=== PATIENT | female | born 1940 | race Caucasian/White ===

== ENCOUNTER 2023-06-26 14:52 | Emergency (ER) | payer MEDICARE, SELFPAY ==
[2023-06-26] VITALS (17 sets, daily range): BP systolic 162–170; BP diastolic 65–91; PULSE 58–109; RESP 12–28; TEMP 36.8; O2SAT 93; BMI 44.6
--- NOTE | 2023-06-26 16:02 | XR_ITS ---
The [address] [address] Patient Name: ANA MORELOS MRN: [id number] date: 1940 Sex: F Assigned Patient Location: ED.MAIN Current Patient Location: ER Accession/Order Number: [id number] Exam Date: 06/26/2023 15:55 Report Date: 06/26/2023 16:31 At the request of: TESS CRUZ Procedure: XR lumbar spine 2-3V EXAM: XR lumbar spine 2-3V HISTORY: Back pain COMPARISON: Abdomen and pelvic CT 01/25/2021 TECHNIQUE: 3 views FINDINGS: IMPRESSION: Since the prior study the patient has undergone vertebroplasty at L1 and L4. Age-indeterminate compression of the T11 and T12 vertebral bodies. Remainder of the visualized vertebral bodies appear unremarkable. No visualized listhesis. Scattered intervertebral disc space narrowing, endplate and facet arthrosis. The bowel gas pattern is nonobstructed. Surgical clips within left upper quadrant. Electronically authenticated by: ALDO ARMSTRONG Date: 06/26/2023 16:31
[2023-06-26 16:09] LABS: Basophils Percent Auto 0.3 % (0.2-2.0); Eosinophils Absolute Auto 0.1 10^3/uL (0.0-0.7); Eosinophils Percent Auto 0.9 % (0.9-7.0); Hematocrit 46.8 % (36.0-48.0); Hemoglobin 15.2 g/dL (12.0-16.0); Immature Granulocytes Abs Auto 0.04 10^3/uL (0.00-0.03); Immature Granulocytes Pct Auto 0.5 % (0.0-0.5); Lymphocytes Absolute Auto 1.9 10^3/uL (1.2-3.8); Lymphocytes Percent Auto 21.7 % (20.5-60.0); Mean Corpuscular HGB Conc 32.5 g/dL (29.9-35.2); Mean Corpuscular Hemoglobin 30.1 pg (26.7-34.0); Mean Corpuscular Volume 92.7 fL (81.0-99.0); Mean Platelet Volume 9.7 fL (9.5-13.5); Monocytes Absolute Auto 0.7 10^3/uL (0.3-0.8); Monocytes Percent Auto 8.2 % (1.7-12.0); Neutrophils Percent Auto 68.4 % (43.0-75.0); Platelet Count 303 10^3/uL (150-450); Red Blood Count 5.05 10^6/uL (4.20-5.40); Red Cell Distribution Width 13.7 % (11.0-15.0); White Blood Count 8.8 10^3/uL (4.0-11.0)
[2023-06-26 16:16] LABS: Alanine Aminotransferase 38 U/L (14-59); Albumin Globulin Ratio 0.7; Albumin Level 3.5 g/dL (3.4-5.0); Alkaline Phosphatase 186 U/L (46-116); Aspartate Amino Transferase 45 U/L (15-37); BUN Creatinine Ratio 21.2; Bilirubin Total 0.7 mg/dL (0.2-1.0); Calcium 8.1 mg/dL (8.5-10.1); Carbon Dioxide 24.6 mmol/L (21.0-32.0); Chloride 100 mmol/L (98-107); Estimated GFR (African America 46 (>=60); Estimated GFR (Non-African Ame 38 (>=60); Globulin 4.7 g/dL; Glucose 158 mg/dL (74-106); Potassium 3.6 mmol/L (3.5-5.1); Sodium 132 mmol/L (136-145); Total Protein 8.2 g/dL (6.4-8.2)
[2023-06-26 16:23] LABS: Lactate/Lactic Acid 1.4 mmol/L (0.4-2.0)
--- NOTE | 2023-06-26 16:56 | ED_ITS ---
HPI - Back Pain/Injury General Chief Complaint: Back Pain/Injury Stated Complaint: ABDOMINAL PAIN/BACK PAIN Time Seen by Provider: 06/26/23 14:59 Source: patient Mode of arrival: Wheelchair Limitations: no limitations History of Present Illness HPI Narrative: 82-year-old obese female presents here with a chief complaint of exacerbation of back pain. Patient was seen at another facility twice last week and had CT scans of her abdomen and lumbar region. Medical records were reviewed. Upon arrival here to the emergency room family states they feel she is unsafe at home and they're unable to control her pain despite using Percocet every 6 hours [id number]. They're also concerned that she may be constipated although patient states she has had a bowel movement. He does have a history of confusion baseline dementia. Patient is alert and oriented this time to place and self. Patient is currently wearing a Lidoderm patch on her lower back. She has a history of kyphoplasty no one and four in the past. [id number] states she started complaining of increased pain last week. She has failed outpatient therapy and pain medicine over the last week. They came to our facility in hopes for help or admission Or transfer to the facility she has been seen a previously. She's had no new onset of loss of bowel or bladder function. She states she has increased pain with range of motion or rolling over. And has pain to palpation. Vertebral region of her lower thoracic and upper lumbar spine. She is able to move all lower extremities. no Sign of cauda equina.She does see Dr. Sebastian. Related Data Allergies Allergy/AdvReac Type Severity Reaction Status Date / Time Penicillins AdvReac Intermediate Verified 06/26/23 15:11 Review of Systems ROS Narrative All Systems are negative except as noted/marked.All systems reviewed and otherwise negative [facility] Social History Smoking status: Never smoker Exam Narrative Exam Narrative: Patient is a All Systems are negative except as noted/marked.All systems reviewed and otherwise negative Nurses note and vital signs reviewed and patient is not hypoxic. General: The patient appears well and in no apparent distress. Patient is resting comfortably on cart. Skin: Warm, dry, no pallor noted. There is no rash noted. Head: Normocephalic, atraumatic Eye: Normal conjunctiva, no drainage, EOMI. PERRL Ears, Nose, Mouth, and Throat: oral mucosa is moist. Nares patent. Mouth without vesicles. Ear canals patent. Tm's without Erythema Cardiovascular: Regular Rate and Rhythm Respiratory: Patient is in no distress, no accessory muscle use, lungs are clear to auscultation, no wheezing, rales or rhonchi Back: There is palpation to the T11-T12 region of her thoracic spine and paravertebral tenderness to palpation of lower lumbar region as well. No pain o ut of proportion crepitus, wearing a Lidoderm patch GI: Normal bowel sounds, no tenderness to palpation, no masses appreciated. No rebound, guarding, or rigidity noted. Musculoskeletal: able to move all lower extremities without difficulty, Neurological: A&O x4, normal speech Psychiatric: Cooperative Constitutional Vital Signs, click to edit/add: Last Vital Signs Temp 98.2 F 06/26/23 15:00 Pulse 60 06/26/23 17:40 Resp 15 06/26/23 17:40 BP 163/65 H 06/26/23 17:31 Pulse Ox 93 L 06/26/23 15:00 O2 Del Method Room Air 06/26/23 15:00 Course Vital Signs Vital signs: Vital Signs Temperature 98.2 F 06/26/23 15:00 Pulse Rate 72 06/26/23 15:00 Respiratory Rate 18 06/26/23 15:00 Blood Pressure 162/91 H 06/26/23 15:00 Pulse Oximetry 93 L 06/26/23 15:00 Oxygen Delivery Method Room Air 06/26/23 15:00 Temperature 98.2 F 06/26/23 15:00 Pulse Rate 60 06/26/23 17:40 Respiratory Rate 15 06/26/23 17:40 Blood Pressure 163/65 H 06/26/23 17:31 Pulse Oximetry 93 L 06/26/23 15:00 Oxygen Delivery Method Room Air 06/26/23 15:00 MDM - Back Pain/Injury Differential Diagnosis Differential diagnosis: Likely lumbar radiculopathy Medical Records Attestation: I reviewed the patient's medical records. Lab Data Attestation: I reviewed the patient's lab results. Lab results narrative: Patient's white count is normal known anemia or thrombocytopenia no severe diabetes renal fairly to light and balance liver function tests today does show an elevated alkaline phosphatase sent with her elevation that she had last week in the emergency room. X-ray of lumbar spine today shows a questionable T11-T12 compression fracture of indeterminate age. Previous lumbar spine CT scan did not make mention of this from her visit last week at another facility. Patient sees neurosurgery at [facility]. Family members agree patient to be transferred over where her neurosurgeon in neurology are available. Patient has failed outpatient pain medication therapy over the past week and has had increased pain or home. Family members are concerned of her increased pain and they cannot take care of her. They fear for her falling. Patient also has a history of dementia. She has been alert and oriented here for me today. They state this is her baseline. She has been taking Percocet and Zofran at home with little to no relief. I called to transfer patient to [facility]. I spoke to Dr. Rodríguez. Patient will be seen her neurosurgeon at that facility. We do not have orthopedist or neurosurgery available at our facility and patient family members wish to have her where she can see her physicians. Patient stable to be Transferred. Labs: Lab Results 06/26/23 Range/Units 15:48 WBC 8.8 (4.0-11.0) 10^3/uL RBC 5.05 (4.20-5.40) 10^6/uL Hgb 15.2 (12.0-16.0) g/dL Hct 46.8 (36.0-48.0) % MCV 92.7 (81.0-99.0) fL MCH 30.1 (26.7-34.0) pg MCHC 32.5 (29.9-35.2) g/dL RDW 13.7 (11.0-15.0) % Plt Count 303 (150-450) 10^3/uL MPV 9.7 (9.5-13.5) fL Neut % (Auto) 68.4 (43.0-75.0) % Lymph % (Auto) 21.7 (20.5-60.0) % [place] % (Auto) 8.2 (1.7-12.0) % Eos % (Auto) 0.9 (0.9-7.0) % Baso % (Auto) 0.3 (0.2-2.0) % Neut # (Auto) 6.0 (1.4-6.5) 10^3/uL Lymph # (Auto) 1.9 (1.2-3.8) 10^3/uL [place] # (Auto) 0.7 (0.3-0.8) 10^3/uL Eos # (Auto) 0.1 (0.0-0.7) 10^3/uL Baso # (Auto) 0.0 (0.0-0.1) 10^3/uL Abs Immat Gran (auto) 0.04 H (0.00-0.03) 10^3/uL Imm/Tot Granulo (auto) 0.5 (0.0-0.5) % Sodium 132 L (136-145) mmol/L Potassium 3.6 (3.5-5.1) mmol/L Chloride 100 (98-107) mmol/L Carbon Dioxide 24.6 (21.0-32.0) mmol/L Anion Gap 11.0 BUN 28.0 H (7.0-18.0) mg/dL Creatinine 1.32 H (0.55-1.02) mg/dL Est GFR ( Amer) 46 L (>=60) Est GFR (Non-Af Amer) 38 L (>=60) BUN/Creatinine Ratio 21.2 Glucose 158 H (74-106) mg/dL Lactate 1.4 (0.4-2.0) mmol/L Calcium 8.1 L (8.5-10.1) mg/dL Total Bilirubin 0.7 (0.2-1.0) mg/dL AST 45 H (15-37) U/L ALT 38 (14-59) U/L Alkaline Phosphatase 186 H (46-116) U/L Total Protein 8.2 (6.4-8.2) g/dL Albumin 3.5 (3.4-5.0) g/dL Globulin 4.7 g/dL Albumin/Globulin Ratio 0.7 Imaging Data lumbar: Attestation: I have reviewed the pertinent imaging results. Radiologist's impression: Patient Name: ANA MORELOS MRN: [id number] date: 1940 Sex: F Assigned Patient Location: ED.MAIN Current Patient Location: ER Accession/Order Number: [id number] Exam Date: 06/26/2023 15:55 Report Date: 06/26/2023 16:31 At the request of: TESS CRUZ Procedure: XR lumbar spine 2-3V EXAM: XR lumbar spine 2-3V HISTORY: Back pain COMPARISON: Abdomen and pelvic CT 01/25/2021 TECHNIQUE: 3 views FINDINGS: IMPRESSION: Since the prior study the patient has undergone vertebroplasty at L1 and L4. Age-indeterminate compression of the T11 and T12 vertebral bodies. Remainder of the visualized vertebral bodies appear unremarkable. No visualized listhesis. Scattered intervertebral disc space narrowing, endplate and facet arthrosis. The bowel gas pattern is nonobstructed. Surgical clips within left upper quadrant. Electronically authenticated by: ALDO ARMSTRONG Date: 06/26/2023 16:31 ECG Data Attestation: ?I have reviewed the pertinent ECG results. Interpretation: 1718 EKG shows normal sinus rhythm rate 70 bpm WI interval 196 ms QRS duration 88 ms, no STEMI Discharge Plan Discharge Chief Complaint: Back Pain/Injury Clinical Impression: Compression fracture of T11 vertebra, Thoracic back pain, Chronic low back pain, Weakness Patient Disposition: [facility] Time of Disposition Decision: 16:57 Condition: Good Mode of Transportation: EMS
[2023-06-26] MEDS: 0.9 % SODIUM CHLORIDE 1,000 ML 1000 ML IV (17:08)
--- NOTE | 2023-06-26 17:13 | ECG_ITS ---
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
[2023-06-26] MEDS: ORPHENADRINE 60 MG/ 2 ML VIAL IV (18:44)
[2023-06-26] MEDS: KETOROLAC TROMETHAMINE 30 MG/ML VIAL IVP (18:44)
== END 2023-06-26 21:52 | disposition short-term general hospital (02) ==
PROVIDERS: Physician Assistant; Emergency Provider Emergency Medicine; PCP Family Medicine
DX: M48.54XA Collapsed vertebra, not elsewhere classified, thoracic region, initial encounter for fracture (principal); G89.29 Other chronic pain; M54.50 Low back pain, unspecified; M54.6 Pain in thoracic spine; R53.1 Weakness; E66.9 Obesity, unspecified; F03.90 Unspecified dementia, unspecified severity, without behavioral disturbance, psychotic disturbance, mood disturbance, and anxiety; Z68.41 Body mass index [BMI] 40.0-44.9, adult
CPT/HCPCS: 36415; 72100; 80053; 81001; 83605; 85025; 93005; 96374; 96375; 99285

== ENCOUNTER 2024-06-06 17:16 | Emergency (ER) | payer MEDICARE, SELFPAY ==
[2024-06-06 17:28] VITALS: BP 174/86; PULSE 75; O2SAT 98; BMI 39.1
--- NOTE | 2024-06-06 17:37 | XR_ITS ---
The [address] [address] Patient Name: ANA MORELOS MRN: [id number] date: 1940 Sex: F Assigned Patient Location: ER Current Patient Location: ED.MAIN Accession/Order Number: [id number] Exam Date: 06/06/2024 18:27 Report Date: 06/06/2024 19:42 At the request of: VICTORINA BRENANN Procedure: XR shoulder LT min 2V EXAM: XR shoulder LT min 2V HISTORY: pain COMPARISON: None. TECHNIQUE: 3 views of left shoulder were obtained. FINDINGS: There is no apparent acute fracture or dislocation. The joint spaces are intact. Diffuse osteopenia is noted. The soft tissues appear intact. XR/XR shoulder LT min 2V IMPRESSION: No apparent acute fracture or dislocation. The joint spaces are intact. Electronically authenticated by: CHINO NASH Date: 06/06/2024 19:42
--- NOTE | 2024-06-06 17:41 | ED.GENADUL1 ---
HPI HPI - General Adult General Chief complaint: Extremity Injury, Upper Stated complaint: FELL, DIFF BREATHING, L SIDE PAIN, DEMENTIA Time Seen by Provider: 06/06/24 17:37 Source: patient Mode of arrival: Wheelchair Limitations: no limitations History of Present Illness HPI narrative: Patient is a 83-year-old female who presented to the ER today with chief complaint of left shoulder pain. Patient fell last Thursday, tripping over a threshold walking into the house. Patient slowly fell down to the ground, this is daughters interpretation and witness of the accident last Thursday. Patient slowly turned her body, slowly lowered herself to the ground but did land on the left shoulder. Patient also hit her left knee. Patient did have some bruising to her left knee and some pain but that is improved. Patient has no pain to her left knee. Patient still does have moderate pain with flexion extension abduction of the left shoulder. Patient was brought to the ER for shoulder x-ray. They try to get into the family doctor, they cannot be seen until next week. Patient has been taking Tylenol and ice. No head injury. Patient did not hit her head. She has no headache or neck pain chest pain or shortness of breath, no other acute complaints. Patient has chronic pain to the left side of her neck, left upper trapezius area. Patient has osteoporosis as well. All systems are negative except as noted/marked. All systems reviewed and otherwise negative. Nurses note and vital signs reviewed and patient is not hypoxic. General: The patient appears well and in no apparent distress. Patient is resting comfortably on cart. Patient is not toxic, lethargic, or listless Skin: Warm, dry, no pallor noted. There is no rash noted. No petechiae, purpura. Head: Normocephalic, atraumatic, patient has no new midline or paracervical tenderness to palpation. Full range of motion of cervical spine with mild difficulty with rotation which is chronic. Eye: Normal conjunctiva, no drainage, EOMI. PERRL Ears, Nose, Mouth, and Throat: oral mucosa is moist. Nares patent. Mouth without vesicles. Cardiovascular: Regular Rate and Rhythm, no murmur, gallop, rub Respiratory: Patient is in no distress, no accessory muscle use, lungs are clear to auscultation, no wheezing, rales or rhonchi Back: non-tender, GI: no tenderness to palpation, no masses appreciated. No rebound, guarding, or rigidity noted. No distention Musculoskeletal: Patient has full range of motion of all of the extremities except the left shoulder. Patient has mild to moderate pain with flexion extension of left shoulder, she has moderate to severe pain with abduction of the left shoulder. Mild pain to the left AC joint. No pain along left collarbone. No new pain to the left scapula. no motor, sensory, or focal neurological deficits Neurological: A&O x4, normal speech Psychiatric: Cooperative Related Data Allergies Allergy/AdvReac Type Severity Reaction Status Date / Time Penicillins AdvReac Intermediate Unknown Verified 06/06/24 17:28 Opioid HPI Opioid Management Most Recent Opioid Data: Last Pain Scale 5 06/06/24 17:37 PFSH PFSH Social History Smoking status: Never smoker Little interest or pleasure in doing things: not at all Feeling down, depressed, or hopeless: not at all Exam Constitutional Vital Signs, click to edit/add: Last Vital Signs Pulse 75 06/06/24 17:28 Resp 18 06/06/24 17:28 BP 174/86 H 06/06/24 17:28 Pulse Ox 98 06/06/24 17:28 O2 Del Method Room Air 06/06/24 17:28 Course Vital Signs Vital signs: Vital Signs Pulse Rate 75 06/06/24 17:28 Respiratory Rate 18 06/06/24 17:28 Blood Pressure 174/86 H 06/06/24 17:28 Pulse Oximetry 98 06/06/24 17:28 Oxygen Delivery Method Room Air 06/06/24 17:28 Pulse Rate 75 06/06/24 17:28 Respiratory Rate 18 06/06/24 17:28 Blood Pressure 174/86 H 06/06/24 17:28 Pulse Oximetry 98 06/06/24 17:28 Oxygen Delivery Method Room Air 06/06/24 17:28 Medical Decision Making MDM Narrative Medical decision making narrative: Patient's left shoulder x-ray shows no obvious fracture, dislocation, or obvious shoulder separation. Patient has soft tissue injury. Education on rotator cuff, labrum or cartilage tear, or shoulder sprain was discussed at bedside and on discharge paperwork. Patient has an orthopedic surgeon at [facility]. Patient will follow-up and make an appointment tomorrow. Daughter has been at bedside and very helpful with history. Patient does have pain medication use if needed, she is very sensitive to pain medication. Education on alternating Tylenol and anti-inflammatories was discussed as well. No questions at discharge. Patient was given a shoulder sling. Patient was given a sling to use for left shoulder. Splint was assisted with . the patient was neurovascularly intact before and after the splint was placed. the affected bones/injured area had proper alignment in a splint. Education on splint care at home was given at bedside. Patient and family have no questions at discharge. Patient understands not to use the shoulder sling over 7 to 10 days, education on adhesive capsulitis was discussed as well. Discharge Plan Discharge Chief Complaint: Extremity Injury, Upper Clinical Impression: Left shoulder pain, Sprain of left shoulder Patient Disposition: Home, Self-Care Time of Disposition Decision: 19:48 Condition: Fair Print Language: Khmer Instructions: Shoulder Sprain (ED), Shoulder Pain (ED) Additional Instructions: Continue ice 20 minutes on, 20 minutes off, do not use heat. Use shoulder sling for the next 5 to 7 days as needed, taking it off for showering if needed. Alternate Tylenol and either Motrin, Advil, or ibuprofen every 4 hours to help with pain. Maximum dose of Tylenol is 3000 mg a day. Maximum dose of either Motrin, Advil, or ibuprofen is 2400 mg a day. Call your orthopedic surgeon at [facility] tomorrow for further recommendations and make an appointment to follow-up for left shoulder pain Referrals: ALDO MERRITT [Primary Care Provider] - 1 week Discharge Date/Time: 06/06/24 20:05
== END 2024-06-06 20:05 | disposition home or self-care (01) ==
PROVIDERS: Emergency Provider Emergency Medicine; PCP Family Medicine
DX: S43.402A Unspecified sprain of left shoulder joint, initial encounter (principal); M25.512 Pain in left shoulder; W01.0XXA Fall on same level from slipping, tripping and stumbling without subsequent striking against object, initial encounter
CPT/HCPCS: 73030; 99283